=== PATIENT | male | born 1965 | race Caucasian/White ===

== ENCOUNTER 2016-07-03 10:35 | Emergency (ER) | payer MEDICARE, MEDICAID ==
--- NOTE | 2016-07-03 12:18 | Emergency Department Record ---
History of Present Illness - General Stated complaint: LEFT SHOULDER/NECK PAIN Time Seen by Provider: 07/03/16 12:12 Source: Patient Mode of Arrival: Ambulatory Limitations: No limitations - History of Present Illness Initial comments: 50 yo male presents with left shoulder pain for about 10 days. The pain is constant. It is positional as well. He does not recall any specific injury. It radiates tot he scapular area at times. No weakness of the arm or numbness. No radiation down the arm. He has some mild neck pain associated. No fevers or chills. No chest pain or shortness of breath. It is not effected by exertion. PCP Nisha Gonzalez in [place] Complaint: Extremity pain, Joint pain -: Days(s) (10) - Related Data Home Medications Medication Instructions Recorded Confirmed Last Taken Calcitriol 1 tab PO ASDIR 02/11/15 07/03/16 07/03/16 Carvedilol [Coreg] 50 mg PO ASDIR 02/11/15 07/03/16 07/03/16 Clonidine HCl/Chlorthalidone 1 tab PO ASDIR 02/11/15 07/03/16 07/03/16 [Clorpres 0.1-15 Tablet] Lisinopril 5 mg PO DAILY 02/11/15 07/03/16 07/03/16 Phosphorus #1 [Av-Phos 250 Neutral 1 tab PO WMEALS 07/03/16 07/03/16 07/03/16 Tablet] Previous Rx's Medication Instructions Recorded Diazepam [Valium] 2.5 mg PO Q8H #15 tab 07/03/16 Allergies Allergy/AdvReac Type Severity Reaction Status Date / Time No Known Drug Intolerances Allergy Unknown PT UNSURE Verified 07/03/16 12:49 OF REACTION Review of Systems Constitutional: Denies: Chills, Fever, Malaise, Weakness Eyes: Denies: Eye discharge ENT: Denies: Congestion, Throat pain Respiratory: Denies: Cough Cardiovascular: Denies: Chest pain, Palpitations, Syncope Endocrine: Denies: Fatigue Gastrointestinal: Denies: Abdominal pain, Diarrhea, Nausea, Vomiting Genitourinary: Denies: Hematuria, Urgency Musculoskeletal: Reports: Arthralgia, Myalgia. Denies: Joint swelling Skin: Denies: Bruising, Change in color, Rash Neurological: Denies: Confusion, Headache Psychiatric: Denies: Anxiety Hematological/Lymphatic: Denies: Blood Clots, Easy bleeding, Easy bruising Past Medical History - SOCIAL HISTORY Smoking Status: Never smoker - RESPIRATORY Hx Respiratory Disorders: No - CARDIOVASCULAR Hx Cardio Disorders: Yes Hx Hypertension: Yes - NEURO Hx Neuro Disorders: No - GI Hx GI Disorders: No - Hx Genitourinary Disorders: Yes Hx Dialysis: Yes - ENDOCRINE Hx Endocrine Disorders: No - MUSCULOSKELETAL Hx Musculoskeletal Disorders: No - PSYCH Hx Psych Problems: No - HEMATOLOGY/ONCOLOGY Hx Hematology/Oncology Disorders: No Physical Exam - General General Appearance: Alert, Oriented x3, Cooperative, No acute distress Limitations: No limitations - Head Head exam: Atraumatic, Normocephalic, Normal inspection - Eye Eye exam: Normal appearance, PERRL. negative: Conjunctival injection - ENT ENT exam: Normal exam Ear exam: Normal external inspection Nasal Exam: Normal inspection Mouth exam: Normal external inspection Teeth exam: Normal inspection Throat exam: Normal inspection - Neck Neck exam: Normal inspection, Tenderness (left lower cervical area to the upper scapular is tender to palpation, no rash). negative: Lymphadenopathy - Respiratory Respiratory exam: Normal lung sounds bilaterally. negative: Respiratory distress - Cardiovascular Cardiovascular Exam: Regular rate, Normal rhythm, Normal heart sounds - GI/Abdominal GI/Abdominal exam: Soft. negative: Tenderness - Rectal Rectal exam: Deferred - exam: Deferred - Extremities Extremities exam: Normal inspection, Full ROM, Normal capillary refill. negative: Pedal edema, Tenderness Image of Full Body: 1 - tender to palpation no rash, normal inspection, pain with ROM - Back Back exam: Reports: Normal inspection, Full ROM, Paraspinal tenderness (upper thoracic paraspinal tenderness to palption, soft, no rash). Denies: CVA tenderness (R), CVA tenderness (L), Vertebral tenderness - Neurological Neurological exam: Alert, Normal gait, Oriented X3, Reflexes normal - Psychiatric Psychiatric exam: Normal affect, Normal mood - Skin Skin exam: Dry, Intact, Normal color, Warm Course - Reevaluation(s) Reevaluation #1: The XR reading was negative for acute process The symptoms of the patient are palpable and reproducible with movement We discussed a low dose muscle relaxant, home care, follow up and reasons to return His BP is elevated, he is aware and states this is a typical range for him. 07/03/16 13:51 Disposition Disposition: Discharge Clinical Impression: Muscle spasm Shoulder sprain Qualifiers: Encounter type: initial encounter Laterality: left Disposition: Home, Self-Care Condition: (1) Good Instructions: Muscle Spasm (ED) Additional Instructions: Return immediately if worse, short of breath, chest pain or any new concerns The muscle relaxant can cause drowsiness so no driving. Call your doctor tomorrow for close follow up and a recheck after this ER visit Prescriptions: Diazepam [Valium] 2.5 mg PO Q8H #15 tab Forms: Patient Portal Access Time of Disposition: 13:54
== END 2016-07-03 14:03 | disposition home or self-care (01) ==
LOC: ER 10:35
DX: M62.830 Muscle spasm of back (principal); M25.512 Pain in left shoulder; I10 Essential (primary) hypertension
CPT/HCPCS: 99283

== ENCOUNTER 2017-10-03 13:21 | Emergency (ER) | payer MEDICARE, MEDICAID ==
[2017-10-03] MEDS ORDERED: PROPARACAINE HCL OPTH 15ML BTL OPTH ONE (14:42)
--- NOTE | 2017-10-03 16:36 | Emergency Department Record ---
History of Present Illness - General Chief complaint: Eye Problem Stated complaint: POKED IN RT EYE WITH STICK Time Seen by Provider: 10/03/17 14:41 Source: Patient Mode of Arrival: Ambulatory Limitations: No limitations - History of Present Illness Initial comments: pt was hit in the eye with a branch w force 2 days ago. he has very blurry vision and is unable to see MD chief complaint: Eye injury Onset/Timin -: Days(s) Onset Description: Sudden Location: Right eye Place: Home, Street/outdoors If Injury: None Eye Symptoms: Blurry vision, Discharge, Redness Severity scale (1-10): 6 If Pain, Quality: Aching Consistency: Constant Associated Symptoms: None Treatments Prior to Arrival: None - Related Data Hx Tetanus Toxoid Vaccination: Yes Home Medications Medication Instructions Recorded Confirmed Last Taken Nifedipine [Nifedipine ER] 60 mg PO DAILY 10/03/17 10/03/17 Unknown Allergies Allergy/AdvReac Type Severity Reaction Status Date / Time No Known Drug Intolerances Allergy Unknown PT UNSURE Verified 07/03/16 12:49 OF REACTION Travel Screening - Travel/Exposure Within Last 30 Days Have you traveled within the last 30 days?: No Review of Systems Reviewed: No additional complaints except as noted below Constitutional: Reports: As per HPI. Denies: Chills, Fever, Malaise, Night sweats, Weakness, Weight change Eyes: Reports: As per HPI. Denies: Eye discharge, Eye pain, Photophobia, Vision change ENT: Reports: As per HPI. Denies: Congestion, Dental pain, Ear pain, Epistaxis , Hearing loss, Throat pain Respiratory: Reports: As per HPI. Denies: Cough, Dyspnea, Hemoptysis, Stridor, Wheezes Cardiovascular: Reports: As per HPI. Denies: Arrhythmia, Chest pain, Dyspnea on exertion, Edema, Murmurs, Orthopnea, Palpitations, Paroxysmal nocturnal dyspnea, Rheumatic Fever, Syncope Endocrine: Reports: As per HPI. Denies: Fatigue, Heat or cold intolerance, Polydipsia, Polyuria Gastrointestinal: Reports: As per HPI. Denies: Abdominal pain, Constipation, Diarrhea, Hematemesis, Hematochezia, Melena, Nausea, Vomiting Genitourinary: Reports: As per HPI. Denies: Dysuria, Frequency, Hematuria, Incontinence, Retention, Testicular pain, Testicular mass, Urgency Musculoskeletal: Reports: As per HPI. Denies: Arthralgia, Back pain, Gout, Joint swelling, Myalgia, Neck pain Skin: Reports: As per HPI. Denies: Bruising, Change in color, Change in hair/ nails, Lesions, Pruritus, Rash Neurological: Reports: As per HPI. Denies: Abnormal gait, Confusion, Headache, Numbness, Paresthesias, Seizure, Tingling, Tremors, Vertigo, Weakness Psychiatric: Reports: As per HPI. Denies: Anxiety, Auditory hallucinations, Depression, Homicidal thoughts, Suicidal thoughts, Visual hallucinations Hematological/Lymphatic: Reports: As per HPI. Denies: Anemia, Blood Clots, Easy bleeding, Easy bruising, Swollen glands Past Medical History - SOCIAL HISTORY Smoking Status: Never smoker - RESPIRATORY Hx Respiratory Disorders: No - CARDIOVASCULAR Hx Cardio Disorders: Yes Hx Hypertension: Yes - NEURO Hx Neuro Disorders: No - GI Hx GI Disorders: No - Hx Genitourinary Disorders: Yes Hx Dialysis: Yes - ENDOCRINE Hx Endocrine Disorders: No - MUSCULOSKELETAL Hx Musculoskeletal Disorders: No - PSYCH Hx Psych Problems: No - HEMATOLOGY/ONCOLOGY Hx Hematology/Oncology Disorders: No Family Medical History Any Significant Family History?: No Physical Exam - General General Appearance: Alert, Oriented x3, Cooperative, Mild distress - Head Head exam: Normal inspection - Eye Eye exam: PERRL, Conjunctival injection, EOMI, Periorbital swelling, Periorbital tenderness, Other (swelling of sclera w bulging and erythema. unable to obtain visual acuity) Pupils: Normal accommodation - ENT ENT exam: Normal exam, Mucous membranes moist, Normal external ear exam, Normal orophraynx Ear exam: Normal external inspection. negative: External canal tenderness Nasal Exam: Normal inspection. negative: Discharge, Sinus tenderness Mouth exam: Normal external inspection, Tongue normal Teeth exam: Normal inspection. negative: Dental caries Throat exam: Normal inspection. negative: Tonsillar erythema, Tonsillar exudate - Neck Neck exam: Normal inspection, Full ROM. negative: Tenderness - Respiratory Respiratory exam: Normal lung sounds bilaterally. negative: Respiratory distress - Cardiovascular Cardiovascular Exam: Regular rate, Normal rhythm, Normal heart sounds - GI/Abdominal GI/Abdominal exam: Soft, Normal bowel sounds. negative: Tenderness - Rectal Rectal exam: Deferred - exam: Deferred - Extremities Extremities exam: Normal inspection, Full ROM, Normal capillary refill. negative: Tenderness - Back Back exam: Reports: Normal inspection, Full ROM. Denies: Muscle spasm, Rash noted, Tenderness - Neurological Neurological exam: Alert, CN II-XII intact, Normal gait, Oriented X3 - Psychiatric Psychiatric exam: Normal affect, Normal mood - Skin Skin exam: Dry, Intact, Normal color, Warm Course Vital Signs 10/03/17 10/03/17 13:44 16:06 Temperature 98.0 F Pulse Rate 64 Pulse Rate [ 71 Pulse Ox Probe] Respiratory 18 18 Rate Blood Pressure 183/121 Blood Pressure 209/116 [Left Arm] Pulse Ox 100 98 - Reevaluation(s) Reevaluation #1: 10/03/17 16:44 d/w dr mujica Reevaluation #2: 10/03/17 17:25 d/w dr alcaraz at [facility] Disposition Disposition: Transfer Clinical Impression: Injury of globe of right eye Qualifiers: Encounter type: initial encounter Qualified Code(s): S05.91XA - Unspecified injury of right eye and orbit, initial encounter Disposition: Acute Care Hospital Transfer [facility] Reason For Transfer: globe injury Accepting Physician: dr alcaraz Time Discussed w/Accepting Physician: 16:55 Referrals: ANGELINA MUJICA [MEDICAL DOCTOR] - Forms: Patient Portal Access Quality - Quality Measures Quality Measures: N/A - Blood Pressure Screening Does Patient Have Any of the Following: Active Dx of HTN Blood Pressure Classification: Hypertensive Reading Systolic Measurement: 183 Diastolic Measurement: 121 Screening for High Blood Pressure: Patient Exclusion, Hx of HTN [G9744]
[2017-10-03] MEDS ORDERED: CARVEDILOL 12.5 MG TABLET PO ONE (16:53)
[2017-10-03] MEDS ORDERED: NIFEDIPINE 30 MG TAB.ER.24 PO SCH (17:00)
--- NOTE | 2017-10-05 12:55 | CT SCAN REPORT ---
EXAM: CT SCAN OF THE ORBITS WITHOUT CONTRAST HISTORY: STICK IN EYE TODAY WITH RIGHT EYE RED AND SWOLLEN. TECHNIQUE: Axial CT scan of the orbits was performed without IV contrast. Comparison: None. Encounter: Initial. FINDINGS: Minor membrane thickening in the ethmoids for the most part with a focal area of more prominent opacification posteriorly in the right ethmoid. The sphenoid and frontal sinuses appear clear. Minor membrane thickening inferiorly in the maxillary antra. The visualized mastoids appear clear. There is no abnormal air collection seen within either orbit. There is preseptal soft tissue swelling anterior to the right orbit. No definite orbital foreign body identified although some foreign bodies will be radiographically indistinguishable from the adjacent soft tissues. No orbital fracture identified. IMPRESSION: 1. SOME PRESEPTAL SOFT TISSUE SWELLING ANTERIOR TO THE RIGHT ORBIT. 2. NO ORBITAL FRACTURE IDENTIFIED AND NO DEFINITE ORBITAL FOREIGN BODY SEEN. 3. SOME FOCAL OPACITY POSTERIORLY IN THE RIGHT ETHMOID SINUS. JOB NUMBER: [id number] MTDD
== END 2017-10-03 17:40 | disposition short-term general hospital (02) ==
LOC: ER 13:21
DX: S05.8X1A Other injuries of right eye and orbit, initial encounter (principal); I10 Essential (primary) hypertension; W22.8XXA Striking against or struck by other objects, initial encounter; Y92.410 Unspecified street and highway as the place of occurrence of the external cause
CPT/HCPCS: 70480; 99284

== ENCOUNTER 2017-11-30 17:06 | Emergency (ER) | payer MEDICARE, MEDICAID ==
--- NOTE | 2017-11-30 17:51 | Emergency Department Record ---
History of Present Illness - General Chief complaint: Weakness Stated complaint: WEAKNESS, HAS AN INFECTION Time Seen by Provider: 11/30/17 17:50 Source: Patient Mode of Arrival: Ambulatory Limitations: No limitations - History of Present Illness Initial comments: pt does peritoneal dialysis. a few days ago he was found to have peritonitis and has been started on vanco. pt is feeling weak and his nurse told him to come in as he might be dehydrated MD Complaint: Generalized weakness Onset/Timin -: Week(s) Location: Generalized Severity scale (1-10): 4 Quality: Other Consistency: Intermittent Improves with: None Worsens with: None Context: Other - [place] Coma Scale Eye Response: (4) Open spontaneously Motor Response: (6) Obeys commands Verbal Response: (5) Oriented [place] Total: 15 - Symptoms of Stroke Symptoms of stroke: Muscle Weakness - Related Data Home Medications Medication Instructions Recorded Confirmed Last Taken Calcium Acetate 1 tab PO ASDIR 11/30/17 11/30/17 11/30/17 Cinacalcet HCl [Sensipar] 30 mg PO DAILY 11/30/17 11/30/17 11/30/17 Allergies Allergy/AdvReac Type Severity Reaction Status Date / Time No Known Drug Intolerances Allergy Unknown PT UNSURE Verified 11/30/17 17:30 OF REACTION Travel Screening - Travel/Exposure Within Last 30 Days Have you traveled within the last 30 days?: No - Travel/Exposure Within Last Year Have you traveled outside the [place] in the last year?: No - Additonal Travel Details Have you been exposed to anyone with a communicable illness?: No - Travel Symptoms Symptom Screening: None Review of Systems Reviewed: No additional complaints except as noted below Constitutional: Reports: As per HPI, Weakness. Denies: Chills, Fever, Malaise, Night sweats, Weight change Eyes: Reports: As per HPI. Denies: Eye discharge, Eye pain, Photophobia, Vision change ENT: Reports: As per HPI. Denies: Congestion, Dental pain, Ear pain, Epistaxis , Hearing loss, Throat pain Respiratory: Reports: As per HPI. Denies: Cough, Dyspnea, Hemoptysis, Stridor, Wheezes Cardiovascular: Reports: As per HPI. Denies: Arrhythmia, Chest pain, Dyspnea on exertion, Edema, Murmurs, Orthopnea, Palpitations, Paroxysmal nocturnal dyspnea, Rheumatic Fever, Syncope Endocrine: Reports: As per HPI. Denies: Fatigue, Heat or cold intolerance, Polydipsia, Polyuria Gastrointestinal: Reports: As per HPI. Denies: Abdominal pain, Constipation, Diarrhea, Hematemesis, Hematochezia, Melena, Nausea, Vomiting Genitourinary: Reports: As per HPI. Denies: Dysuria, Frequency, Hematuria, Incontinence, Retention, Testicular pain, Testicular mass, Urgency Musculoskeletal: Reports: As per HPI. Denies: Arthralgia, Back pain, Gout, Joint swelling, Myalgia, Neck pain Skin: Reports: As per HPI. Denies: Bruising, Change in color, Change in hair/ nails, Lesions, Pruritus, Rash Neurological: Reports: As per HPI. Denies: Abnormal gait, Confusion, Headache, Numbness, Paresthesias, Seizure, Tingling, Tremors, Vertigo, Weakness Psychiatric: Reports: As per HPI. Denies: Anxiety, Auditory hallucinations, Depression, Homicidal thoughts, Suicidal thoughts, Visual hallucinations Hematological/Lymphatic: Reports: As per HPI. Denies: Anemia, Blood Clots, Easy bleeding, Easy bruising, Swollen glands Past Medical History - SOCIAL HISTORY Smoking Status: Never smoker Alcohol Use: None Drug Use: None - RESPIRATORY Hx Respiratory Disorders: No - CARDIOVASCULAR Hx Cardio Disorders: Yes Hx Hypertension: Yes - NEURO Hx Neuro Disorders: No - GI Hx GI Disorders: No - Hx Genitourinary Disorders: Yes Hx Dialysis: Yes - ENDOCRINE Hx Endocrine Disorders: No - MUSCULOSKELETAL Hx Musculoskeletal Disorders: No - PSYCH Hx Psych Problems: No - HEMATOLOGY/ONCOLOGY Hx Hematology/Oncology Disorders: No Family Medical History Any Significant Family History?: No Physical Exam - General General Appearance: Alert, Oriented x3, Cooperative, Mild distress - Head Head exam: Normal inspection - Eye Eye exam: Normal appearance, PERRL, Conjunctival injection, EOMI Pupils: Normal accommodation - ENT ENT exam: Normal exam, Mucous membranes moist, Normal external ear exam, Normal orophraynx Ear exam: Normal external inspection. negative: External canal tenderness Nasal Exam: Normal inspection. negative: Discharge, Sinus tenderness Mouth exam: Normal external inspection, Tongue normal Teeth exam: Normal inspection. negative: Dental caries Throat exam: Normal inspection. negative: Tonsillar erythema, Tonsillar exudate - Neck Neck exam: Normal inspection, Full ROM. negative: Tenderness - Respiratory Respiratory exam: Normal lung sounds bilaterally. negative: Respiratory distress - Cardiovascular Cardiovascular Exam: Regular rate, Normal rhythm, Normal heart sounds - GI/Abdominal GI/Abdominal exam: Soft, Normal bowel sounds, Other (peritoneal dialysis port). negative: Tenderness - Rectal Rectal exam: Deferred - exam: Deferred - Extremities Extremities exam: Normal inspection, Full ROM, Normal capillary refill. negative: Tenderness - Back Back exam: Reports: Normal inspection, Full ROM. Denies: Muscle spasm, Rash noted, Tenderness - Neurological Neurological exam: Alert, CN II-XII intact, Normal gait, Oriented X3 - Psychiatric Psychiatric exam: Normal affect, Normal mood - Skin Skin exam: Dry, Intact, Normal color, Warm Course Vital Signs 11/30/17 17:37 Temperature 98.3 F Pulse Rate 80 Respiratory 20 Rate Blood Pressure 146/103 Pulse Ox 99 - Reevaluation(s) Reevaluation #1: 11/30/17 18:54 pt feels better. pt is running his dialysis and prescribed vancomycin. pt wants to go home Medical Decision Making - Lab Data Result diagrams: 11/30/17 18:15 11/30/17 18:15 Disposition Disposition: Discharge Clinical Impression: Weakness, Dehydration, Peritoneal dialysis catheter in place Chronic renal failure Qualifiers: Chronic kidney disease stage: stage 4 (severe) Qualified Code(s): N18.4 - Chronic kidney disease, stage 4 (severe) Disposition: Home, Self-Care Condition: (1) Good Instructions: Weakness (ED), End Stage Kidney Disease (ED), Peritoneal Dialysis Catheter Care (ED), How to Care for Your Chest or Abdominal Catheter ( ED) Additional Instructions: follow up with composite technician tomorrow without fail. return sooner if worse Forms: Patient Portal Access Quality - Quality Measures Quality Measures: N/A - Blood Pressure Screening Does Patient Have Any of the Following: Active Dx of HTN Blood Pressure Classification: Hypertensive Reading Systolic Measurement: 146 Diastolic Measurement: 103 Screening for High Blood Pressure: Patient Exclusion, Hx of HTN [G9744]
[2017-11-30] MEDS ORDERED: 0.9% SODIUM CHLORIDE 250ML BAG IV ONE (18:07)
[2017-11-30 18:30] LABS: HEMOGLOBIN 10.1 gm/dl (14.0-18.0); MEAN CELL VOLUME 88.4 fl (81-97); MEAN CORPUSCULAR HGB CONC 34.8 g/dl (32-36); PLATELET COUNT 289 K/uL (130-400); RED BLOOD COUNT 3.28 M/uL (4.40-5.70); RED CELL DISTRIBUTION WIDTH 14.5 % (11.5-14.5); WHITE BLOOD COUNT W/O DIFF 11.6 K/uL (4.2-12.2)
[2017-11-30 18:32] LABS: MEAN CORPUSCULAR HEMOGLOBIN 30.7 pg (27-33)
[2017-11-30 18:39] LABS: BILIRUBIN,TOTAL 0.6 mg/dL (0.2-1.0); CREATININE 17.3 mg/dL (0.7-1.2)
[2017-11-30 18:40] LABS: TOTAL PROTEIN 7.2 g/dL (6.6-8.7)
[2017-11-30 18:45] LABS: ALB/GLOB RATIO 1.5 (1.1-1.8); ALBUMIN 4.3 g/dL (4.0-5.0)
[2017-11-30 19:02] LABS: ERYTHROCYTE SEDIMENTATION RATE 57 mm/hr (0-20)
== END 2017-11-30 19:25 | disposition home or self-care (01) ==
LOC: ER 17:06
DX: E86.0 Dehydration (principal); I12.0 Hypertensive chronic kidney disease with stage 5 chronic kidney disease or end stage renal disease; N18.6 End stage renal disease; R53.1 Weakness; M62.81 Muscle weakness (generalized); I10 Essential (primary) hypertension; Z99.2 Dependence on renal dialysis
CPT/HCPCS: 80053; 85027; 85651; 99284